=== PATIENT | female | born 1985 | race Two or more races ===

== ENCOUNTER 2016-12-17 12:11 | Emergency (ER) | payer BC, OTHER ==
[~2016-12-17] VITALS: Ht 160 cm; Wt 120.9 kg
[2016-12-17] MEDS ORDERED: ALBUTEROL/IPRATROPIUM 2.5MG/0.5MG, 3 ML NPPB ONE (13:00)
[2016-12-17] MEDS ORDERED: ALBUTEROL/IPRATROPIUM 2.5MG/0.5MG, 3 ML ONE (13:08)
[2016-12-17 14:14] VITALS: BP 106/58
== END 2016-12-17 14:17 | disposition home or self-care (01) ==
LOC: ED 12:49
DX: J20.9 Acute bronchitis, unspecified (principal)
CPT/HCPCS: 71020; 93005; 94640; 99284; J7512; J7620